=== PATIENT | female | born 1980 ===

== ENCOUNTER 2018-10-16 12:42 | Inpatient (IN) | payer OTHER ==
[~2018-10-16] VITALS: Ht 175.3 cm; Wt 70.3 kg
[2018-10-16] MEDS ORDERED: PRENATAL TABLE1 EAC3 PO (13:04)
== END 2018-10-18 13:48 | disposition home or self-care (01) | DRG 807 ==
LOC: LDR 12:42 → SURG-SUITE 22:52
PROVIDERS: ADMIT Obstetrics & Gynecology
PROC: 10E0XZZ Delivery of Products of Conception, External Approach (ICD-10-PCS; principal; 2018-10-16)
PROC: 4A1HXCZ Monitoring of Products of Conception, Cardiac Rate, External Approach (ICD-10-PCS; 2018-10-16)
DX: O60.14X0 Preterm labor third trimester with preterm delivery third trimester, not applicable or unspecified (principal); Z37.0 Single live birth; Z3A.36 36 weeks gestation of pregnancy